=== PATIENT | female | born 1960 | race Caucasian/White ===

== ENCOUNTER 2017-02-11 05:12 | Inpatient (IN) | payer MEDICARE ==
[2017-02-08 10:54] LABS: HEMATOCRIT 34.4 % (36.0-48.0); HEMOGLOBIN 11.1 g/dL (12-16); MCH 32.7 pg (26.0-34.0); MCHC 32.3 g/dL (31.0-37.0); MCV 101.5 fL (80.0-100.0); MEAN PLATELET VOLUME 10.3 fL (7.4-10.4); RBC 3.39 10x6/uL (4.00-5.40); RDW 13.6 % (11.5-14.5); WBC 4.6 10x3/uL (4.8-10.8)
[2017-02-08 10:59] LABS: CALC OSMOLALITY 276 mosm/kg (275-300); CALCIUM 8.4 mg/dL (8.5-10.1); CARBON DIOXIDE 26.1 mmol/L (21.0-32.0); CHLORIDE - SERUM 104 mmol/L (98-107); CREATININE - SERUM 0.7 mg/dL (0.6-1.3); GLUCOSE 79 mg/dL (74-106); POTASSIUM - SERUM 4.4 mmol/L (3.5-5.1); SODIUM 138 mmol/L (136-145); UREA NITROGEN 17 mg/dL (7-18); eGFR NON AFRICAN AMERICAN > 90 mL/min (90-120)
[~2017-02-11 05:12] MED LIST: ACETAMINOPHEN PO; BUMEX 1 MG TAB1 MG PO; BUTALB-APAP-CA1 EACH PO; BUTALBITAL PO; CAFFEINE PO; CALAN SR120 MG PO; CELEXA40 MG PO; HYDROCODONE-APA1 TAB PO; KEPPRA1000 MG PO; PHENERGAN25 M1 PO; SOMA350 MG PO; TOPROL XL50 MG PO; ULTRAM50 MG PO; XANAX0.5 MG PO; ZANTAC150 MG PO
[2017-02-11 08:59] VITALS: BP 143/85; BMI 27.1
--- NOTE | 2017-02-11 15:48 | NUR ---
CONSULTED ANESTHESIA REGARDING ELEVATED BLOOD PRESSURE. GIVEN ORDERS PER ISRRAEL RUBIO CRNA FOR HYDRALAZINE 10MG TO BE GIVEN X1 IN PACU.
[2017-02-11 16:14] VITALS: BP 162/77
[2017-02-11 16:29] VITALS: BP 162/77; BMI 27.1
--- NOTE | 2017-02-11 16:49 | NUR ---
CONSULTED ANESTHESIA REGARDING NAUSEA AFTER BEING GIVEN ZOFRAN 4MG IV. GIVEN VERBAL ORDERS PER ISRRAEL RUBIO CRNA TO GIVE PHENERGAN 12.5MG IV X1 IN PACU.
--- NOTE | 2017-02-11 16:52 | NUR ---
PATIENT PRESENTED TO PACU WITH PRBC'S INFUSING. THIS WAS THE SECOND UNIT THE FIRST UNIT WAS TRANSFUSED IN OR. SECOND UNIT FINISHED TRANSFUSING AT 1545. SEE VITAL SIGN SHEET.
[2017-02-11 20:00] VITALS: BP 127/81
--- NOTE | 2017-02-11 20:06 | NUR ---
PT HERE FOR A FRACTURE FOR THIS VISIT PT DENIES NEEDS AT THIS TIME SRX2 BED AT LOWEST SETTING WILL CONTINUE TO MONITOR
--- NOTE | 2017-02-11 23:41 | NUR ---
PATIENT IS RESTING QUIETLY WITH EYES CLOSED. NO SIGNS OF DISTRESS NOTED. BED IN LOWEST POSITION, CALL LIGHT IN REACH. BED RIALS UP X'S 2.
[2017-02-12] VITALS: BP 113/72
[2017-02-12 04:52] LABS: HEMATOCRIT 30.2 % (36.0-48.0)
[2017-02-12 05:39] VITALS: BP 111/60
--- NOTE | 2017-02-12 07:50 | NUR ---
PT AOX4 RESP EVEN AND NONLABORED PT DENIES NEEDS AT THIS TIME SRX2 BED AT LOWEST SETTING CALL LIGHT WITHIN REACH WILL CONTINUE TO MONITOR
[2017-02-12 08:05] VITALS: BP 128/70
[2017-02-12 12:28] VITALS: BP 156/85
--- NOTE | 2017-02-12 14:26 | NUR ---
Patient Name: TUCKER POSEY Admission Status: Elective Accout number: [id number] Admission Date: 02-11-2017 : 1960 Admission Diagnosis: Attending: JOANNE GUNTER Current LOS: 1 Anticipated DC Date: 02-14-2017 Planned Disposition: Home Primary Insurance: MEDICARE A & B Discharge Planning Comments: CM MET WITH PATIENT REGARDING D/C NEEDS AND PLANS. PATIENT STATED SHE LIVES WITH HER SPOUSE AND HE OR HER SECURITY CONTROLS ASSESSOR WILL DRIVE HER HOME AT DISCHARGE. PATIENT STATED SHE HAS 8 STEPS W/RAILS TO ENTER HOME AND 1 STEP INSIDE. PATIENT IS INDEPENDENT WITH HER CARE AND HAS A WALKER, WHEELCHAIR, SHOWER CHAIR, BSC, OXYGEN, NEBULIZER, AND PORTABLE O2 (SUPPLIED BY [employer]). PATIENTS PCP IS DR. ESTRADA AND PHARMACY IS [facility]. PATIENT IS CURRENT WITH [facility]. CM WILL CONTINUE TO FOLLOW PATIENT WITH D/C NEEDS AND PLANS. PCP DR. ESTRADA [email or web address] [facility] [phone] ROBERT (SPOUSE) [phone] OR [phone] [facility]- [phone] Chairman & Chief Executive Officer: Devika Miriam Is the patient Alert and Oriented? Yes 0 * How many steps to enter\exit or inside your home? 8 w/rails 0 * PCP DR. ESTRADA 0 * Pharmacy [facility] 0 * Preadmission Environment Home with Family 0 * ADLs Independent 0 * Equipment Bedside Commode Nebulizer Oxygen Shower Chair Walker Wheelchair 0 * List name and contact numbers for known caregivers / representatives who currently or will assist patient after discharge: ROBERT (SPOUSE) [phone] OR [phone] 0 * Community resources currently utilized Home Health 0 * Please name any agencies selected above. [facility] 0 * Additional services required to return to the preadmission environment? Yes 0 * Can the patient safely return to the preadmission environment? Yes 0 * Has this patient been hospitalized within the prior 30 days at any hospital? No 0 Grand Total: 0
[2017-02-12 15:46] VITALS: BP 142/84
[2017-02-12 20:00] VITALS: BP 125/70
--- NOTE | 2017-02-13 01:59 | NUR ---
IV SITED TO RIGHT FOREARM X 1 ATTEMPT. 22G. GOOD BLOOD RETURN. FLUSHES W/O DIFFICULTY. FLUIDS AND MAINTENANCE SHOP CLERK HOOKED BACK UP. PT TOLERATED WELL. SIDE RAILS PLACED UP X 2. BED IN LOWEST POSITION. CALL LIGHT PLACED WITHIN REACH.
[2017-02-13 04:00] VITALS: BP 145/54
[2017-02-13 05:42] LABS: HEMATOCRIT 26.6 % (36.0-48.0); HEMOGLOBIN 8.9 g/dL (12-16)
--- NOTE | 2017-02-13 07:21 | NUR ---
REPORT RECEIVED FROM BURGLARY INVESTIGATOR NURSE. CALL LIGHT IN REACH.
--- NOTE | 2017-02-13 08:30 | NUR ---
ASSESSMENT COMPLETED. PERCOCET PO WITH AM MEDS ADMINISTERED. SCD TO RLE. EXPLAINED TO PATIENT THAT SHE NEEDS TO USE THE IS MUCH POSSIBLE. VERBALIZED UNDERSTANDING. ALSO INFORMED HER THAT WE NEED A URINE SAMPLE THE NEXT TIME SHE HAS TO GO TO THE BR.
[2017-02-13 08:54] VITALS: BP 153/85
--- NOTE | 2017-02-13 09:56 | NUR ---
NEW DIRECTOR OF SUPPLY CHAIN VIAL INITIATED. STATES PAIN IS ONLY DOWN TO AN 8 AT THIS TIME.
--- NOTE | 2017-02-13 10:50 | NUR ---
URINE COLLECTED AND SENT TO LAB.
[2017-02-13 11:35] LABS: APPEARANCE HAZY (CLEAR); COLOR YELLOW (YELLOW); NITRITE NEGATIVE (NEGATIVE); PROTEIN NEGATIVE (NEGATIVE)
[2017-02-13 11:36] LABS: BACTERIA MODERATE /hpf (NONE SEEN); BILIRUBIN NEGATIVE (NEGATIVE); EPITHELIAL CELLS 0-5 /hpf (0-5); GLUCOSE NEGATIVE (NEGATIVE); KETONE NEGATIVE (NEGATIVE); MUCUS <1+ /lpf (NONE SEEN); RED CELLS - URINE OCC /hpf (0-5); UROBILINOGEN NORMAL (NORMAL); YEAST <1+ /hpf (NONE SEEN)
--- NOTE | 2017-02-13 11:41 | NUR ---
PATIENT IN BED WITH EYES OPEN. NO COMPLAINTS AT THIS TIME. CELERY TIER IN ROOM. NO COMPLAINTS OR SIGNS OF DISTRESS. CALL LIGHT WITHIN REACH.
[2017-02-13 13:04] VITALS: BP 93/60
--- NOTE | 2017-02-13 13:43 | NUR ---
ANCEF IVPB. ASSISTED TO BR WITH USE OF WALKDER. TOLERATED VERY WELL.
--- NOTE | 2017-02-13 14:03 | NUR ---
DRSG TO LEFT HIP REMOVED, INCISION CLEANSED, AND NEW DRSG APPLIED. FAMILY AT BEDSIDE. CALL LIGHT IN REACH.
--- NOTE | 2017-02-13 14:46 | NUR ---
SOMA PO PER ORDER. STATES SHE IS HAVING HAND CRAMPS.
--- NOTE | 2017-02-13 16:44 | NUR ---
XANAX AND PERCOCET PO PER JUNAID MEEHAN.
[2017-02-13 17:34] VITALS: BP 107/66
--- NOTE | 2017-02-13 18:04 | NUR ---
NO CHANGES IN INITIAL ASSESSMENT. CALL LIGHT IN REACH. SCD TO RLE. CALL LIGHT IN REACH. WILL CONTINUE WITH PLAN OF CARE.
--- NOTE | 2017-02-13 18:56 | OP ---
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 PROCEDURE: Revision ORIF of left femur fracture. SURGEON: Joanne Gunter MD. ANESTHESIA: General. INTRAOPERATIVE COMPLICATIONS: Essentially none. SUMMARY OF PATHOLOGIC FINDINGS: The patient did have a more of malunion than a nonunion, although the distal aspect of the cable plate that was placed before had broken away and the femur had drifted into substantial amount of varus causing the patient to have severe pain in her knee and disability walking. After discussing the risks, hazards and benefits associated with this, the patient wished to proceed with corrective revision surgery. OPERATIVE SUMMARY IN DETAIL: After obtaining the appropriate preoperative orthopedic surgery consent as well as anesthetic consultation, evaluation and clearance, the patient was brought to the operating room and placed on table in supine position. After general endotracheal anesthesia was administered, the patient was placed in a right lateral decubitus position. All pressure points were well padded to include down leg peroneal pad as well as axillary roll. The patient was held firmly to the operating table using the vacuum pack suction system. Left lower extremity and hip were prepped and draped in routine sterile fashion. Previously utilized incision was made, essentially from the lateral epicondyle to just below the greater trochanter. Dissection was carried down to the IT band and careful dissection was carried down to the vastus lateralis. Substantial and significant amount of interperforators were cauterized or controlled with hemostats. Dissection was then carried down to the plate. Serial and sequential cut of the cables was done. This was followed by removal of the plate. Substantial amount of heterotopic ossification had to be removed through the entire length of the wound. At this point, a broad large frag plate from LIA was molded into more valgus using the large plate morillo. The plate was then affixed. An osteotomy was performed at the cracks of the malunion essentially right between the stem of the total hip and the intramedullary aden from a previous supracondylar femur fracture above the total knee. This was all done under fluoroscopy. Compression plating technique was done with unicortical screws and then the plate was affixed up and down the femur using Dall-Miles cables. Final radiographs were taken and submitted for radiologist review. The wound was irrigated substantially and the vastus lateralis was closed followed by the IT band with #2 Ethibond. This was then followed by #1 Vicryl, 2-0 Vicryl and skin kathy. Sterile dressings were applied. The patient was awakened, taken to the recovery room in stable OPERATIVE REPORT [id number] TUCKER POSEY condition. Overall correction seemed to be from approximately 3 degrees of varus to 7 degrees of valgus as seen on postoperative radiographs. TRANSINT:[id number] Voice Confirmation ID: [id number] DOCUMENT ID: [id number] LYRIC HUMPHRIES, JOANNE RAMOS at 1856 CC: [id number] DICTATION DATE: 02/11/17 1441 BASS VIOL REPAIRER: 02/11/17 1832 ADM IN [facility] [address] [place] [address]
[2017-02-13 20:00] VITALS: BP 99/57
[2017-02-14] VITALS (20 sets, daily range): BP systolic 90–117; BP diastolic 48–79
--- NOTE | 2017-02-14 00:48 | NUR ---
PATIENT'S CRECHE ATTENDANT SRINGE EMPTY AND BEEPING, INITIATED A NEW CRECHE ATTENDANT SYRINGE. PATIENT VERBALIZING ANXIETY, REQUESTED XANAX, WHICH IS SCHEDULED AND TIME TO BE GIVEN. ADMINISTERED. PATIENT DENIES ANY OTHER NEEDS AT THIS TIME. BED IN LOWEST POSITION, CALL LIGHT IN REACH. BED RIALS UP X'S 2.
[2017-02-14 05:18] LABS: HEMATOCRIT 23.2 % (36.0-48.0)
[2017-02-14 05:49] LABS: HEMOGLOBIN 7.4 g/dL (12-16)
--- NOTE | 2017-02-14 07:45 | NUR ---
REPORT RECEIVED FROM SAP PORTAL CONSULTANT NURSE. CALL LIGHT IN REACH.
--- NOTE | 2017-02-14 09:51 | NUR ---
ASSESSMENT COMPLETED. PERCOCET PO WITH AM MEDS ADMINISTERED. SCD TO RLE. WILL START 2ND IV FOR PRBC. CALL LIGHT IN REACH. WILL CONTINUE WITH PLAN OF CARE.
--- NOTE | 2017-02-14 11:30 | NUR ---
IN BED AT THIS TIME. SCD TO RLE AND IMOBILIZER TO LEFT LEG. DRESSING TO LEFT HIP C/D/I. RESPIRATIONS EVEN AND NON LABORED. DENIES NEEDS AT PRESENT TIME. CALL LIGHT IN REACH, WILL CONTINUE WITH PLAN OF CARE.
--- NOTE | 2017-02-14 13:54 | NUR ---
SOMA AND PERCOCET PO. CALL LIGHT IN REACH.
--- NOTE | 2017-02-14 14:45 | NUR ---
PRBC UNIT 1 INITIATED @ 125 CC/HR VIA PUMP PER JUNAID INIGUEZ. VSS AT THIS TIME. WILL CONTINUE TO MONITOR.
--- NOTE | 2017-02-14 16:38 | NUR ---
DIAZ AND GENARO PO. CALL LIGHT IN REACH.
--- NOTE | 2017-02-14 18:00 | NUR ---
C/O PAIN OF 7. PERCOCET PO. UNIT 1 COMPLETED @ 1755. NO OTHER CHANGES IN INITIAL ASSESSMENT. CALL LIGHT IN REACH. SCD TO RLE. WILL CONTINUE WITH PLAN OF CARE.
--- NOTE | 2017-02-14 19:00 | NUR ---
REPORT RECEIVED AND CARE OF PT ASSUMED. PT LYING IN SUPINE POSITION WATCHING TV. IV IN RIGHT FA PATENT WITH NS FLUSHING BLOOD TUBING AT THIS TIME. WILL MONITOR FOR NEEDS.
--- NOTE | 2017-02-14 21:39 | NUR ---
HS MEDICATIONS GIVEN. WILL CONTINUE TO MONITOR FOR NEEDS.
--- NOTE | 2017-02-14 21:45 | NUR ---
STARTED 2ND UNIT OF PRBC'S. PT HAS ELEVATED TEMP OF 99.4 PRIOR TO STARTING BLOOD.
--- NOTE | 2017-02-14 21:57 | NUR ---
GAVE TYLENOL 650 ML PO FOR ELEVATED TEMP.
--- NOTE | 2017-02-14 23:47 | NUR ---
GAVE SCHEDULED XANAX, ALONG WITH BENADRYL 25 MG PO AND PERCOCET PO PER PRN ORDERS, PER REQUEST. WILL MONITOR FOR EFFECTIVENESS. CALL LIGHT WITHIN REACH.
--- NOTE | 2017-02-15 00:20 | NUR ---
2ND UNIT OF PRBC'S COMPLETE. VITALS STABLE. WILL CONTINUE TO MONITOR. LINE FLUSHING.
[2017-02-15 00:45] VITALS: BP 109/62
[2017-02-15 01:23] VITALS: BP 109/66
[2017-02-15 01:45] VITALS: BP 114/56
--- NOTE | 2017-02-15 05:25 | NUR ---
PT AWOKE WITH SEVERE PAIN. GAVE BOLUS OF DEMERAL FROM EGG GRADER PER ORDER: 25 MG. WILL CONTINUE TO MONITOR FOR NEEDS.
[2017-02-15 06:42] VITALS: BP 138/78
[2017-02-15 07:34] LABS: BASOPHILS 0.3 % (0-2); EOSINOPHILS 3.4 % (0-7); HEMATOCRIT 28.5 % (36.0-48.0); HEMOGLOBIN 9.5 g/dL (12-16); IMMATURE GRANULOCYTES 0.2 % (0-5); LYMPHOCYTES 13.1 % (15-50); MCH 31.1 pg (26.0-34.0); MCHC 33.3 g/dL (31.0-37.0); MCV 93.4 fL (80.0-100.0); MEAN PLATELET VOLUME 10.1 fL (7.4-10.4); MONOCYTES 15.7 % (2-11); NEUTROPHILS 67.3 % (40-80); PLATELET COUNT 172 10x3/uL (130-400); RBC 3.05 10x6/uL (4.00-5.40); RDW 16.7 % (11.5-14.5); WBC 6.4 10x3/uL (4.8-10.8)
--- NOTE | 2017-02-15 07:35 | NUR ---
ASSESSMENT COMPLETE. IV TO R FA PATENT. 05/14 NS INFUSING AT 50 CC/HR VIA PUMP. ASSOCIATE BRAND MANAGER DEMEROLE 10-10-200 IN USE FOR PAIN CONTROL. DRESSING TO L HIP INTACT. IMMOBILIZER IN USE TO L LEG. SCD IN USE TO R LEG. DENIES ANY NEEDS AT THIS TIME.
[2017-02-15 07:45] LABS: CALC OSMOLALITY 276 mosm/kg (275-300); CALCIUM 7.9 mg/dL (8.5-10.1); CARBON DIOXIDE 28.2 mmol/L (21.0-32.0); CHLORIDE - SERUM 103 mmol/L (98-107); CREATININE - SERUM 0.7 mg/dL (0.6-1.3); GLUCOSE 91 mg/dL (74-106); POTASSIUM - SERUM 4.1 mmol/L (3.5-5.1); SODIUM 138 mmol/L (136-145); UREA NITROGEN 15 mg/dL (7-18); eGFR NON AFRICAN AMERICAN > 90 mL/min (90-120)
[2017-02-15 08:31] VITALS: BP 136/78
[2017-02-15] MEDS ORDERED: ELIQUIS2.5 MG PO (10:00)
[2017-02-15] MEDS ORDERED: SOMA350 MG PO (10:00)
[2017-02-15] MEDS ORDERED: MEPERIDINE HCL50 MG PO (10:01)
[2017-02-15] MEDS ORDERED: ZOFRAN4 MG PO (10:01)
[2017-02-15] MEDS ORDERED: BACTRIM DS TABL1 TAB PO (10:20)
--- NOTE | 2017-02-15 11:09 | NUR ---
CM REASSESSMENT NOTE: PATIENT IS DISCHARGING HOME TODAY/ FRIEND IS DRIVING HER HOME. PATIENT IS CURRENT WITH [facility]. FRIENDS WILL BE STAYING WITH HER AT HER HOME TO HELP. PATIENT HAS NO OTHER NEEDS FOR DISCHARGE. IAM SERVED THIS AM.
--- NOTE | 2017-02-15 12:30 | NUR ---
IV REMOVED. CATHETER TIP INTACT. DRESSING TO L HIP CHANGED. HERIBERTO INTACT TO L HIP INCISION. DISCHARGE TEACHING GIVEN TO PATIENT AND CAREGIVER. VOICED UNDERSTANDING. SCRIPTS FOR ELIQUIS, SOMA, DEMEROL,AND ZOFRAN GIVEN TO PATIENT.
--- NOTE | 2017-02-15 13:15 | NUR ---
DC'D HOME WITH DEMAND PLANNING MANAGER. ESCORTED TO VEHICLE BY VOLUNTEER VIA WC WITH BELONGINGS.
== END 2017-02-15 13:15 | disposition home health service (06) | DRG 481 ==
LOC: D.OPS 05:12 → D.PAN 10:15 → D.OPS 10:15 → D.PAN 10:45 → D.OPS 10:45 → D.PAN 12:45 → D.MS 15:55 → D.OPS 16:46 → D.MS 16:46
PROVIDERS: Anesthesiology; ADMIT Orthopaedic Surgery
PROC: 0QS904Z Reposition Left Femoral Shaft with Internal Fixation Device, Open Approach (ICD-10-PCS; principal; 2017-02-11 10:15)
DX: S72.302 Unspecified fracture of shaft of left femur (principal); D62 Acute posthemorrhagic anemia; X58.XXXD Exposure to other specified factors, subsequent encounter; I10 Essential (primary) hypertension; K21.9 Gastro-esophageal reflux disease without esophagitis; J44.9 Chronic obstructive pulmonary disease, unspecified; G40.909 Epilepsy, unspecified, not intractable, without status epilepticus; F17.200 Nicotine dependence, unspecified, uncomplicated

== ENCOUNTER → 2017-02-22 19:57 | Outpatient (CLI) | payer MEDICARE ==
[2017-02-11 16:29] VITALS: BMI 27.1
[~2017-02-22 19:57] MED LIST changes: +BACTRIM DS TABL1 TAB PO; +ELIQUIS2.5 MG PO; +MEPERIDINE HCL50 MG PO; +ZOFRAN4 MG PO
[2017-02-22 20:21] LABS: BASOPHILS 0.7 % (0-2); HEMATOCRIT 33.3 % (36.0-48.0); HEMOGLOBIN 10.6 g/dL (12-16); IMMATURE GRANULOCYTES 0.4 % (0-5); MCH 30.8 pg (26.0-34.0); MCHC 31.8 g/dL (31.0-37.0); MCV 96.8 fL (80.0-100.0); MEAN PLATELET VOLUME 10.1 fL (7.4-10.4); MONOCYTES 10.3 % (2-11); NEUTROPHILS 58.6 % (40-80); PLATELET COUNT 343 10x3/uL (130-400); RBC 3.44 10x6/uL (4.00-5.40); RDW 15.6 % (11.5-14.5); WBC 5.5 10x3/uL (4.8-10.8)
== END | disposition home or self-care (01) ==
LOC: D.LABREF 19:57
PROVIDERS: Orthopaedic Surgery
DX: M96.662 Fracture of femur following insertion of orthopedic implant, joint prosthesis, or bone plate, left leg (principal); I10 Essential (primary) hypertension; K21.9 Gastro-esophageal reflux disease without esophagitis; J44.9 Chronic obstructive pulmonary disease, unspecified

== ENCOUNTER → 2017-06-15 17:27 | Outpatient (CLI) | payer MEDICARE ==
[2017-06-15 18:54] LABS: INR 5.47 (0.85-1.17); PROTIME 48.8 SECONDS (11.6-15.0)
== END | disposition home or self-care (01) ==
LOC: D.LABREF 17:27
PROVIDERS: Internal Medicine Cardiovascular Disease
DX: Z51.81 Encounter for therapeutic drug level monitoring (principal); Z79.01 Long term (current) use of anticoagulants

== ENCOUNTER → 2017-07-09 20:02 | Outpatient (CLI) | payer MEDICARE ==
[2017-07-09 20:58] LABS: INR 1.29 (0.85-1.17); PROTIME 15.6 SECONDS (11.6-15.0)
== END | disposition home or self-care (01) ==
LOC: D.LABREF 20:02
PROVIDERS: Internal Medicine Cardiovascular Disease
DX: I11.0 Hypertensive heart disease with heart failure (principal); Z51.81 Encounter for therapeutic drug level monitoring; Z79.899 Other long term (current) drug therapy; I50.9 Heart failure, unspecified

== ENCOUNTER 2018-04-21 13:20 | Emergency (ER) | payer MEDICARE | END 2018-04-21 17:16 | disposition home or self-care (01) | LOC: D.ER 13:20 | DX: S80.01XA Contusion of right knee, initial encounter (principal); W18.30XA Fall on same level, unspecified, initial encounter; Y93.89 Activity, other specified; Y92.019 Unspecified place in single-family (private) house as the place of occurrence of the external cause; M25.521 Pain in right elbow; R07.81 Pleurodynia; G40.909 Epilepsy, unspecified, not intractable, without status epilepticus; I10 Essential (primary) hypertension ==

== ENCOUNTER 2019-01-23 11:14 | Inpatient (IN) | payer MEDICARE ==
[~2019-01-23] VITALS: Ht 165.1 cm; Wt 77.1 kg
[~2019-01-23 11:14] MED LIST changes: +CYCLOBENZAPRINE10 MG PO; +KEFLEX500 MG PO; +PLAVIX75 MG PO
[2019-01-23] MEDS ORDERED: PHENERGAN25 MG RC (11:28)
[2019-01-23 12:15] LABS: HEMOGLOBIN 11.1 g/dL (12-16); LYMPHOCYTES 32.6 % (15-50); MCH 32.3 pg (26.0-34.0); MCHC 32.6 g/dL (31.0-37.0); MCV 98.8 fL (80.0-100.0); MEAN PLATELET VOLUME 10.9 fL (7.4-10.4); NEUTROPHILS 51.9 % (40-80); RBC 3.44 10x6/uL (4.00-5.40); RDW 14.1 % (11.5-14.5); WBC 4.5 10x3/uL (4.8-10.8)
[2019-01-23 12:16] LABS: BASOPHILS 0.9 % (0-2); EOSINOPHILS 2.7 % (0-7); MONOCYTES 11.9 % (2-11)
[2019-01-23 12:19] LABS: PLATELET COUNT 138 10x3/uL (130-400)
[2019-01-23 12:27] LABS: APTT 31.6 SECONDS (22.8-39.4); INR 1.11 (0.85-1.17); PROTIME 13.8 SECONDS (11.6-15.0)
[2019-01-23 12:29] LABS: ALBUMIN 3.6 g/dL (3.4-5.0); ALKALINE PHOSPHATASE 252 U/L (46-116); ALT (SGPT) 41 U/L (10-68); BILIRUBIN - TOTAL 0.38 mg/dL (0.2-1.3); CALC OSMOLALITY 289 mosm/kg (275-300); CALCIUM 7.7 mg/dL (8.5-10.1); CARBON DIOXIDE 22.8 mmol/L (21.0-32.0); CHLORIDE - SERUM 110 mmol/L (98-107); CREATININE - SERUM 1.2 mg/dL (0.6-1.3); GLUCOSE 109 mg/dL (74-106); POTASSIUM - SERUM 5.9 mmol/L (3.5-5.1); PROTEIN - SERUM 6.6 g/dL (6.4-8.2); SODIUM 142 mmol/L (136-145); UREA NITROGEN 30 mg/dL (7-18); eGFR NON AFRICAN AMERICAN 49 mL/min (90-120)
[2019-01-23 12:40] LABS: CKMB 0.9 U/L (0.0-3.6); CREATINE KINASE 86 UL (21-215); MAGNESIUM - SERUM 2.7 mg/dL (1.8-2.4); THYROID STIMULATING HORMONE 1.14 uIU/mL (0.36-3.74); TROPONIN-I < 0.017 ng/mL (0.000-0.060)
[2019-01-23 15:34] LABS: APPEARANCE CLEAR (CLEAR); BILIRUBIN NEGATIVE (NEGATIVE); COLOR YELLOW (YELLOW); GLUCOSE NEGATIVE (NEGATIVE); KETONE NEGATIVE (NEGATIVE); NITRITE NEGATIVE (NEGATIVE); PROTEIN NEGATIVE (NEGATIVE); UROBILINOGEN NORMAL (NORMAL)
[2019-01-23 15:36] LABS: RED CELLS - URINE 0-5 /hpf (0-5); WHITE CELLS - URINE 25-50 /hpf (0-5)
[2019-01-23 15:37] LABS: BACTERIA FEW /hpf (NONE SEEN); EPITHELIAL CELLS 0-5 /hpf (0-5)
[2019-01-23 15:48] LABS: UDS - AMPHET NEGATIVE QUAL (NEGATIVE); UDS - BARB NEGATIVE QUAL (NEGATIVE); UDS - BENZO POSITIVE QUAL (NEGATIVE); UDS - COCAINE NEGATIVE QUAL (NEGATIVE); UDS - OPIATE POSITIVE QUAL (NEGATIVE); UDS - PCP NEGATIVE QUAL (NEGATIVE); UDS - THC NEGATIVE QUAL (NEGATIVE)
[2019-01-23 18:35] VITALS: BP 120/78
--- NOTE | 2019-01-23 19:00 | NUR ---
ARRIVED TO FLOOR VIA STRETCHER AND ER STAFF XS 1. BIPAP IS ON AND WORKING PROPERLY AT THIS TIME, HAS CONCERNS OF HER WEARING IT, HE THINKS IT IS MAKING HER TOO SLEEPY, EDUCATION PROVIDED TO HIM ON HER BODY NEEDING THE REST TO RECOVER FULLY, HE UNDERSTOOD, RESPIRATORY ON UNIT TO MAKE SURE ALL SETTINGS ARE CORRECT. PT IS ALERT TO VERBAL STIMULI, SHE COMPLAINS OF HEADACHE, TYLENOL GIVEN PER ORDERS, IV TO LEFT SHOULDER IS PATENT. SKIN IS CDI, SHOWS NO S/S OF ANY ACUTE DISTRESS. WILL MOTE ANY CHANGE.
[2019-01-23 20:22] VITALS: BP 108/61
[2019-01-23 21:27] VITALS: BP 108/61; BMI 28.3
--- NOTE | 2019-01-23 22:03 | NUR ---
ADMISSION ASSESSMENT COMPLETE.
[2019-01-24] VITALS: BP 127/67
[2019-01-24 03:05] LABS: BASOPHILS 1.6 % (0-2); EOSINOPHILS 2.2 % (0-7); HEMATOCRIT 31.3 % (36.0-48.0); LYMPHOCYTES 23.3 % (15-50); MCH 31.9 pg (26.0-34.0); MCHC 31.9 g/dL (31.0-37.0); MEAN PLATELET VOLUME 11.2 fL (7.4-10.4); MONOCYTES 24.9 % (2-11); PLATELET COUNT 127 10x3/uL (130-400); RBC 3.13 10x6/uL (4.00-5.40); RDW 14.3 % (11.5-14.5)
[2019-01-24 03:06] LABS: WBC 3.1 10x3/uL (4.8-10.8)
[2019-01-24 03:29] LABS: CKMB 0.7 U/L (0.0-3.6); CREATINE KINASE 60 UL (21-215); MAGNESIUM - SERUM 2.7 mg/dL (1.8-2.4)
[2019-01-24 03:30] LABS: TROPONIN-I < 0.017 ng/mL (0.000-0.060)
--- NOTE | 2019-01-24 03:54 | NUR ---
AT 0255 COMPLAINTS OF CHEST PAIN NOTED, VS T:98.8, BP:156/72, R:12, HR:68, 02 100% ON BIPAP, RAPID RESPONSE CALLED IN RELATION TO PREVIOUS CARDIAC HX AND CURRENT RESPIRATORY ISSUES. IS AT BEDSIDE. PT STATES PAIN IS IN THE LOWER LEFT CHEST REGION AND MORE PROMINENT UPON INSPIRATION. RAPID TEAM ARRIVED WITH MULTIPLE STAT ORDERS INCLUDING NITRO SL TIMES TWO WITH NO RELIEF OF CHEST PAIN, CARDIAC ENZYMES WERE STABLE, COMPLAINTS OF HEADACHE NOTED, DR. RAYA WAS SATISFIED WITH CURRENT TYLENOL ORDERS, PT REQUESTED HER HYDROCODONE BE RESTARTED INSTEAD OF TAKING TYLENOL, INSTRUCTED PT THAT HER HOME MEDS WERE STILL UNDER REVIEW FOR PHYSICIAN TO RESTART, PT VERBALLY UNDERSTOOD AND TOOK TYLENOL, SPEAKS FOR PT ON OCCASIONS AND COMMUNICATES TO STAFF HER COMPLAINTS, PT REMAINS ON THIS UNIT AT THIS TIME WITH ORDERS FOR CARDIAC CONSULT TO BE CALLED IN MORNING. VS ARE STABLE, REPOSITIONED TIMES TWO STAFF, BIPAP THERAPY CONTINUED. COMPLAINTS OF SINUS BUILD UP PER AT THIS TIME. WILL CONTINUE TO OBSERVE AND NOTE ANY CHANGE.
[2019-01-24 04:00] VITALS: BP 139/79
--- NOTE | 2019-01-24 04:53 | NUR ---
RESTING QUIETLY IN BED AT THIS TIME, STATES TURNING THE LIGHT OFF HELPS WITH HER HEADACHE, LIGHT OFF, NO S/S OF ANY ACUTE DISTRESS, NO FURTHER COMPLAINTS OF PAIN. WILL NOTE ANY CHANGE.
[2019-01-24 05:15] LABS: BASOPHILS 0.6 % (0-2); EOSINOPHILS 3.4 % (0-7); HEMATOCRIT 30.2 % (36.0-48.0); HEMOGLOBIN 9.6 g/dL (12-16); LYMPHOCYTES 22.8 % (15-50); MCH 31.6 pg (26.0-34.0); MCHC 31.8 g/dL (31.0-37.0); MCV 99.3 fL (80.0-100.0); MEAN PLATELET VOLUME 11.7 fL (7.4-10.4); MONOCYTES 19.4 % (2-11); NEUTROPHILS 53.8 % (40-80); PLATELET COUNT 133 10x3/uL (130-400); RBC 3.04 10x6/uL (4.00-5.40); RDW 14.2 % (11.5-14.5); WBC 3.3 10x3/uL (4.8-10.8)
[2019-01-24 05:44] LABS: % SATURATION 16 % (15-55); IRON 40 ug/dl (35-150); TOTAL IRON BIND CAPACITY 237 ug/dl (260-445); UNSAT IRON BIND CAPACITY 197 ug/dl (150-375)
[2019-01-24 06:05] LABS: ALBUMIN 3.2 g/dL (3.4-5.0); ALKALINE PHOSPHATASE 215 U/L (46-116); ALT (SGPT) 32 U/L (10-68); BILIRUBIN - TOTAL 0.45 mg/dL (0.2-1.3); CALC OSMOLALITY 278 mosm/kg (275-300); CALCIUM 7.7 mg/dL (8.5-10.1); CARBON DIOXIDE 23.1 mmol/L (21.0-32.0); CHLORIDE - SERUM 110 mmol/L (98-107); FERRITIN 70 ng/mL (3-244); GLUCOSE 81 mg/dL (74-106); MAGNESIUM - SERUM 2.7 mg/dL (1.8-2.4); PHOSPHOROUS 3.6 mg/dL (2.5-4.9); POTASSIUM - SERUM 5.5 mmol/L (3.5-5.1); PRO BNP 2069 pg/mL (0-125); PROTEIN - SERUM 6.6 g/dL (6.4-8.2); SODIUM 138 mmol/L (136-145); UREA NITROGEN 25 mg/dL (7-18)
[2019-01-24 06:22] LABS: CREATININE - SERUM 0.8 mg/dL (0.6-1.3); eGFR NON AFRICAN AMERICAN 78 mL/min (90-120)
--- NOTE | 2019-01-24 07:03 | NUR ---
PATIENT RESTING WITH NO NEEDS VOICED, BIPAP ON, AT SIDE
[2019-01-24 08:46] VITALS: BP 151/72
[2019-01-24 09:51] VITALS: Ht 165.1 cm; Wt 77.1 kg
[2019-01-24 12:39] VITALS: BP 157/75
[2019-01-24 16:52] VITALS: BP 146/81
[2019-01-24 19:53] VITALS: BP 149/76
--- NOTE | 2019-01-24 20:00 | NUR ---
ALERT RESTING IN BED AT BEDSIDE, C/O SEVER BACK BACK REQUESTING PAIN MEDICATION, INSTRUCTED THAT ONLY HAD TYLENOL ORDERED FOR PAIN AND HAD THAT AT 1630, DUE FOR SOMA AND XANAX AT 2100 WILL GIVE THAT AND SEE IF THAT HELPS, DR DID NOT WANT TO GIVE MEDS THAT MIGHT MAKE SLEEPY DUE TO REPITORY PROBLEMS LAST NIGHT, VERBALIZED UNDERSTANDING, SEE SHIFT ASSESSMENT, CALL LIGHT IN REACH.
--- NOTE | 2019-01-24 21:00 | NUR ---
REFUSED TYLENOL AT THIS TIME, GOING TO TRY AND SEE IF SOMA AND XANAX HEPL
--- NOTE | 2019-01-24 22:45 | NUR ---
[place] CARDIAC MONITOR FOR DR RAYA PAGED REGARDING UNCONTROLED BACK PAIN, AWAITING CALL BACK
--- NOTE | 2019-01-25 00:10 | NUR ---
CALL BACK RECIEVED FROM [place], INFORMED OF C/O SEVER BACK PAIN TAKES NORCO AT HOME FOR PAIN BUT PT WAS APPARENTLY LETHARGIC ON ADMIT WITH NOTE IN CHART FROM DR RAYA NO TO OVER SEDATE, HAS TYLENOL FOR PAIN WHICH WAS GIVEN WITHOUT RELIEF AND SOMA AND XANAX RESTARTED AT 2100, CONTINUES NO RELIEF, NO ORDERS AT THIS TIME STATES WILL NEED TO TO TALK TO IN AM ABOUT ADDITIONAL PAIN MEDICATION, PT AND INFORMED, TYLENOL GIVEN AND PILLOWS PLACED ON BED FOR COMFORT
[2019-01-25 00:46] VITALS: BP 163/80
--- NOTE | 2019-01-25 01:30 | NUR ---
STATES SHE WANTS TO GO AMA, SPOKE WITH PT STATES I CANT LAY IN THAT BED MY BACK IS KILLING ME I JUST WANT TO GO HOME AND GET IN MY RECLINER, THAT IS WHERE I SLEEP, REMINDED PT OF CONDITION SHE WAS IN WHEN SHE CAME TO HOSPITAL AND NEED TO STAY AND TALK TO TOMORROW, INSISTING ON GOING HOME AMA
--- NOTE | 2019-01-25 02:10 | NUR ---
HOUSE SUPERVISIOR NOTIFIED, WILL ATTEMPT TO FIND MORE COMFORTABLE RECLINER FOR ROOM, [place] ESQUIVEL AND RETURNED CALL INFORMED OF PT WANTING TO GO AMA AND STATES ONLY DR SHE REMEMBERS IS DR AMBROCIO WHO WANTS TO DO ANGEOGRAM ON SATURDAY INSTRUCTED TO REALLY ENCOURAGE PT TO STAY AND 1 TIME ORDER FOR NORDONNA GIVE
--- NOTE | 2019-01-25 02:30 | NUR ---
LARGE SOFT RECLINER LOCATED AND PLACED IN ROOM, PT STATES THIS MIGHT WORK FEEL GOOD, INSTRUCTED THAT [place] SLATER HAD ORDERED ONE TIME NORCO TO HELP WITH PAIN, AGREED TO TAKE PAIN MED AND TO STAY IN HOSPITAL TONIGHT AND TALK TO DRS TOMORRW, REMAING AT BEDSIDE, CALL LIGHT IN REACH
[2019-01-25 05:38] LABS: BASOPHILS 0.3 % (0-2); EOSINOPHILS 0.6 % (0-7); HEMATOCRIT 28.3 % (36.0-48.0); HEMOGLOBIN 9.2 g/dL (12-16); MCH 31.3 pg (26.0-34.0); MCHC 32.5 g/dL (31.0-37.0); MONOCYTES 21.4 % (2-11); NEUTROPHILS 47.7 % (40-80); PLATELET COUNT 143 10x3/uL (130-400); RBC 2.94 10x6/uL (4.00-5.40); RDW 14.1 % (11.5-14.5); WBC 3.3 10x3/uL (4.8-10.8)
[2019-01-25 05:39] LABS: MCV 96.3 fL (80.0-100.0)
[2019-01-25 06:04] LABS: CALC OSMOLALITY 285 mosm/kg (275-300); CALCIUM 7.8 mg/dL (8.5-10.1); CARBON DIOXIDE 19.4 mmol/L (21.0-32.0); CHLORIDE - SERUM 113 mmol/L (98-107); CREATININE - SERUM 0.8 mg/dL (0.6-1.3); GLUCOSE 86 mg/dL (74-106); MAGNESIUM - SERUM 2.6 mg/dL (1.8-2.4); POTASSIUM - SERUM 5.3 mmol/L (3.5-5.1); SODIUM 143 mmol/L (136-145); UREA NITROGEN 19 mg/dL (7-18); eGFR NON AFRICAN AMERICAN 78 mL/min (90-120)
--- NOTE | 2019-01-25 07:45 | NUR ---
PT RESTING IN RECLINER WITH EYES OPEN, LAYING IN BED. ALERT AND ORIENTED. NO S/S OF DISTRESS AT THIS TIME. IV LOCATED TO LEFT SHOULDER CURRENTLY SL. DENIES NEEDS AT THIS TIME, WILL CONT TO MONITOR.
[2019-01-25 08:58] VITALS: BP 135/77
[2019-01-25 12:07] VITALS: BP 152/72
--- NOTE | 2019-01-25 12:38 | NUR ---
PT SITTING UP IN RECLINER WATCHING TV. NO S/S OF DISTRESS, DENIES NEEDS AT THIS TIME.
[2019-01-25 17:06] VITALS: BP 159/93
--- NOTE | 2019-01-25 19:15 | NUR ---
RECEIVED CARE FROM DAY NRUSE. SITTING IN RECLINER STATING IT IS MORE COMFORTABLE FOR HER. SPOUSE AT SIDE. REQUESTING NORCO. NO NORCO ORDERED AND PER DAY NURSE AWARE THAT SHE WOULD LIKE HER NORCO'S REORDERED. IV SL TO LEFT SHOULDER. NO OTHER NEEDS VOICED AT THIS TIME. CALL LIGHT AT SIDE.
[2019-01-25 20:00] VITALS: BP 197/80
[2019-01-25] MEDS ORDERED: HYDROCODON-ACE1 EA10 PO (21:00)
[2019-01-25] MEDS ORDERED: LOPRESSOR25 MG PO (21:05)
[2019-01-26] VITALS: BP 148/75
--- NOTE | 2019-01-26 04:00 | NUR ---
I have reviewed this patient and I concur with the Shift Assessment completed by the Licensed Practical Nurse today this shift.
--- NOTE | 2019-01-26 06:39 | NUR ---
PT REPORTS SHE IS NOT HAVING THE HEART CATH THIS MORNING AND WANTS TO GO HOME. SPOKE WITH DR RAYA WHO STATES IT WILL BE ADDRESSED ON ROUNDS. SPOKEW WITH DR AMBROCIO WHO IS OK WITH DC.
[2019-01-26 06:40] LABS: BASOPHILS 0.7 % (0-2); EOSINOPHILS 1.9 % (0-7); HEMATOCRIT 30.8 % (36.0-48.0); HEMOGLOBIN 10.2 g/dL (12-16); LYMPHOCYTES 43.4 % (15-50); MCH 31.6 pg (26.0-34.0); MCHC 33.1 g/dL (31.0-37.0); MCV 95.4 fL (80.0-100.0); MEAN PLATELET VOLUME 10.9 fL (7.4-10.4); MONOCYTES 19.1 % (2-11); NEUTROPHILS 34.9 % (40-80); RBC 3.23 10x6/uL (4.00-5.40); RDW 14.4 % (11.5-14.5); WBC 2.7 10x3/uL (4.8-10.8)
[2019-01-26 06:41] LABS: PLATELET COUNT 174 10x3/uL (130-400)
[2019-01-26 06:46] LABS: CALC OSMOLALITY 285 mosm/kg (275-300); CHLORIDE - SERUM 113 mmol/L (98-107); CREATININE - SERUM 0.8 mg/dL (0.6-1.3); GLUCOSE 80 mg/dL (74-106); MAGNESIUM - SERUM 2.4 mg/dL (1.8-2.4); PHOSPHOROUS 2.7 mg/dL (2.5-4.9); POTASSIUM - SERUM 4.9 mmol/L (3.5-5.1); SODIUM 143 mmol/L (136-145); UREA NITROGEN 17 mg/dL (7-18); eGFR NON AFRICAN AMERICAN 78 mL/min (90-120)
--- NOTE | 2019-01-26 08:00 | NUR ---
PATIENT SITTING UP IN RECLINER WITH NO COMPLAINTS AT THIS TIME. STATES SHE IS NOT HAVING A HEART CATH SHE REFUSES. DR. RAMSAY NOTIFIED THIS AM BY TIARRA HAN. IV INTACT. FAMILY AT BEDSIDE. CALL LIGHT WITHIN REACH.
[2019-01-26 08:06] VITALS: BP 157/55
--- NOTE | 2019-01-26 09:40 | NUR ---
Nutrition follow-up: Pt currently NPO for heart cath today PO intake of low sodium diet has been ~50% of last 5 meals Labs reviewed Wt: 170# RDN following.
--- NOTE | 2019-01-26 11:03 | MORECARE ---
CASE MANAGEMENT DISCHARGE SUMMARY PATIENT: TUCKER POSEY UNIT: [id number] ADM DATE: 01/23/19 AGE: 58 : 62 SEX: F ROOM/BED: D.2234 AUTHOR: ANALIDOC PHYSICIAN: REFERRING PHYSICIAN: MARIA ELENA RAYA MD DATE OF SERVICE: 01/26/19 Discharge Plan Patient Name: TUCKER POSEY Facility: [facility]:[place] : 1960 Planned Disposition: Home Anticipated Discharge Date: 01/26/19 Discharge Date: Expected LOS: 3 Initial Reviewer: [email or web address] Initial Review Date: 01/26/2019 Generated: 01/26/19 12:03 pm Comments DCP- Discharge Planning Updated by [email or web address]: Romelia Friedman on 01/26/19 10:[address] Patient Name: TUCKER POSEY Admission Status: ER Accout number: [id number] Admission Date: 01-23-2019 : 1960 Admission Diagnosis: Attending: MARIA ELENA RAYA Current LOS: 3 Anticipated DC Date: 01-26-2019 Planned Disposition: Home Primary Insurance: MEDICARE A & B Discharge Planning Comments: CM met with patient at bedside after explaining CM role and obtaining verbal consent. STATES HAS [facility] [place] FOR AND [facility]. PLANS TO DC TO HOME TODAY WITH . IM SIGNED. CM TO FOLLOW AND ASSIST. Refractory Technician: Romelia Friedman DCPIA - Discharge Planning Initial Assessment Updated by [email or web address]: Romelia Friedman on 01/26/19 11:00 am * Is the patient Alert and Oriented? Yes * PCP [facility] * [facility] * Preadmission Environment Home with Family * ADLs Independent * Other Equipment WALKER, O2 * Community resources currently utilized Home Health * Please name any agencies selected above. [facility] AND [facility] * Additional services required to return to the preadmission environment? No * Can the patient safely return to the preadmission environment? Yes * Has this patient been hospitalized within the prior 30 days at any hospital? No Coverage Notice Reviewer: [id number] Mohan Friedman Notice Issued Date-Time: 01/26/2019 10:58 Notice Type: IM Discharge Notice Notice Delivered To: Patient Relationship to Patient: Chief Investment Officer Name: Delivery Method: HAND - Hand Delivered Brandee Days: Prior Verbal Notification: Recipient Understood Notice: Yes Recipient Signature: Yes Med Rec Note Co-signed by Attending: Coverage Notice Comment: Patient Name: TUCKER POSEY Page [phone] at 1103 All edits/amendments must be made on the electronic document DICTATION DATE: 01/26/191102 WAGON WINDER: JARRETT 01/26/191102 RPT#: [id number] DC DATE: STATUS: ADM IN [facility] [address] [place] [address] END OF REPORT
[2019-01-26] MEDS ORDERED: Nicoderm [PBKC] TRANSDERM (11:24)
[2019-01-26] MEDS ORDERED: OMNICEF300 MG PO (11:25)
[2019-01-26 11:49] VITALS: BP 142/83
--- NOTE | 2019-01-26 12:10 | NUR ---
PATIENT RECIEVED DC INSTRUCTIONS. VERBALIZED UNDERSTANDING. IV REMOVED WITH CATH TIP INTACT. FAMILY AT SIDE. AWAITING WC FOR DC. CALL LIGHT WITHIN REACH.
--- NOTE | 2019-01-27 13:03 | EC ---
PATIENT:TUCKER POSEY DATE OF SERVICE: 01/23/19 SEX: F MEDICAL RECORD: [id number] DATE OF : 62 LOCATION:D[facility] AGE OF PATIENT: 58 ADMISSION DATE: 01/23/19 REFERRING PHYSICIAN: INTERPRETING PHYSICIAN: KEILA AMBROCIO MD ECHOCARDIOGRAM REPORT ECHO CHARGES 4 ECHO COMPLETE Date: 01/24/19 CLINICAL DIAGNOSIS: CHF/CAD ECHOCARDIOGRAPHIC MEASUREMENTS (adult normal given) AC root (d.<3.7cm) 2.8 cm LV Septum d (<1.2 cm> 1.3 cm Valve Excursion 2.0 cm LV Septum (systole) 1.8 cm Left Atria (s.<4.0cm> 4.8 cm LVPW d(<1.2cm) 1.4 cm RV (d.<2.3cm) 1.7 cm LVPW (sytole) 1.9 cm LV diastole(<5.6CM) 4.3 cm MV E-F(>70mm/sec) cm LV systole 2.2 cm LVOT Diameter 1.9 cm MV exc.(>10mm) cm Est.ejection fraction (50-75%) % DOPPLER: LVIT cm/sec A 163 cm/sec E 128 cm/sec LA cm/sec RVSP 27.0 mmHg LVOT 242 cm/sec AOP1/2T m/s Asc. Ao 245 cm/sec RVOT 143 cm/sec RA cm/sec PA 169 cm/sec AV Gradient Peak 24.0 mmHg AV Mean 13.0 mmHg AV Area 3.0 cm MV Gradient Peak 9.9 mmHg MV Mean 4.1 mmHg MV Area cm COMMENTS: Elementary School Band Director: Matty GARCIAOE Certified Public Accountant: 3 Dr. Mackey TAPE# PACS Pericardial Effusion N DATE OF SERVICE: 01/25/2019 Adequate 2D, color flow imaging, spectral Doppler, and M-Mode LVH is present. LV internal dimension is normal. Wall motion is normal. EF is greater than or equal to 55%. Aortic valve is sclerosed without evidence of stenosis by Doppler interrogation. Left atrium is dilated at 4.8 cm. Mitral valve is thickened. Trace MR. Right-sided chambers are grossly normal. Ialv-eh-[id number] TR. ECHOCARDIOGRAM REPORT [id number] TUCKER POSEY TRANSINT:[id number] Voice Confirmation ID: [id number] DOCUMENT ID: [id number] KEILA AMBROCIO MD at 1303 CC: [id number] DICTATION DATE: 01/25/19923 METAL FITTER: 01/25/19 1258 DIS IN 01/26/19 [place] [id number] [place] [id number]
--- NOTE | 2019-01-27 13:03 | CN ---
PATIENT NAME:TUCKER POSEY MEDICAL RECORD: [id number] : 62 LOCATION:[facility] [id number] ADMIT DATE: 01/23/19 ACCOUNT: [id number] CONSULTING PHYSICIAN: KEILA AMBROCIO MD REFERRING PHYSICIAN: MARIA ELENA RAYA MD DATE OF CONSULTATION: 01/24/2019 HISTORY OF PRESENT ILLNESS: A 58-year-old female with known history of coronary artery disease, status post SALOON KEEPER and stenting and subsequent either dissection or perforation with emergency bypass grafting. This was at [facility]. Unknown EF post procedure. History of, by 's report, increasing angina over the past 2-3 weeks with chest tightness, pressure with exertion as well as symptomology consistent with LV dysfunction, progressed to orthopnea, confusion, brought to the ER on an emergent basis, initially on BiPAP. Currently improved after diuresis. Reports basically class III symptomatology, chest tightness, pressure with exertion. We are asked to see her concerning her cardiovascular status. PAST MEDICAL HISTORY: Includes; 1. History of hypertension. 2. Hyperlipidemia. 3. Coronary artery disease as described above. ALLERGIES: INCLUDE NONSTEROIDAL, PENICILLIN, ASPIRIN. MEDICATIONS: Include Phenergan 25 mg every 4 hours p.r.n., Soma 350 t.i.d. p.r.n., Plavix 75 every day, metoprolol 50 every day, Xanax 0.5 every 8 hours p.r.n., Celexa 40 every day, Keppra 500 every day, Zantac 150 b.i.d., and Bumex 1 mg every day. SOCIAL HISTORY: Smokes about a pack a day. Nondrinker. Stays active, but no set exercise program. reports marked decrease in effort tolerance over the past 3-4 weeks. REVIEW OF SYSTEMS: The patient reports easy bruising but reports no swollen glands. The patient reports no fever, no night sweats, no significant weight gain, no significant weight loss. No significant exercise tolerance. The patient reports no dry eyes, no irritation, no vision change. Patient reports no difficulty hearing and no ear pain. Patient reports no frequent nose bleeds or nose and sinus problems. Patient reports on arm pain on exertion. No shortness of breath while lying down. No history of heart murmur. Patient reports no cough, no wheezing or coughing up blood. Patient reports no abdominal pain, no vomiting. Normal appetite. No diarrhea and not vomiting blood. No nausea and no constipation. Patient reports no incontinence. No difficulty urinating. No hematuria. No increased frequency. Patient reports no muscle aches. No weakness, no arthralgias, no back pain. No swelling of the extremities. Patient reports no abnormal mole, no jaundice, no rashes. Reports no loss of consciousness. No weakness and no numbness. No seizures, dizziness, or headaches. The patient reports no depression, no sleep disturbance, feeling safe in a relationship and no alcohol abuse. Patient reports on fatigue. Reports no runny nose or sinus pressure. No itching, no hives, and no frequent sneezing. PHYSICAL EXAMINATION: GENERAL: Pleasant female, in no acute distress, appears older than stated age. CONSULT REPORT [id number] TUCKER POSEY VITAL SIGNS: Blood pressure 151/72. HEENT: Normocephalic, atraumatic. NECK: No bruits noted. HEART: Regular. A II/ systolic ejection murmur. LUNGS: Fair air excursion at this point. Few expiratory wheezes. ABDOMEN: Soft, nontender. EXTREMITIES: Pulses 2+. No edema. DIAGNOSTIC DATA: ECG shows nonspecific ST-T changes inferolaterally without old for comparison. IMPRESSION: Acute coronary syndrome, class III-IV angina, known residual disease. At this point in time, given the impression of her symptomology, we will consider diagnostic angiography. TRANSINT:[id number] Voice Confirmation ID: [id number] DOCUMENT ID: [id number] KEILA AMBROCIO MD at 1303 CC: [id number] DICTATION DATE: 01/24/19 1012 PHARMACEUTICAL SALES SPECIALIST: 01/24/19 1041 DIS IN 01/26/19 [facility] [address] [place] [address]
--- NOTE | 2019-01-28 09:04 | MORECARE ---
CASE MANAGEMENT DISCHARGE SUMMARY PATIENT: TUCKER POSEY UNIT: [id number] ADM DATE: 01/23/19 AGE: 58 : 62 SEX: F ROOM/BED: D.2234 AUTHOR: ANALI,DOC PHYSICIAN: REFERRING PHYSICIAN: MARIA ELENA RAYA MD DATE OF SERVICE: 01/28/19 Discharge Plan Patient Name: TUCKER POSEY Facility: [facility]:[place] : 1960 Planned Disposition: Home Anticipated Discharge Date: 01/26/19 Discharge Date: 01/26/2019 Expected LOS: 3 Initial Reviewer: [email or web address] Initial Review Date: 01/26/2019 Generated: 01/28/19 10:04 am Comments DCP- Discharge Planning Updated by [email or web address]: Romelia Friedman on 01/26/19 10:[address] Patient Name: TUCKER POSEY Admission Status: ER Accout number: [id number] Admission Date: 01-23-2019 : 1960 Admission Diagnosis: Attending: MARIA EELNA RAYA Current LOS: 3 Anticipated DC Date: 01-26-2019 Planned Disposition: Home Primary Insurance: MEDICARE A & B Discharge Planning Comments: CM met with patient at bedside after explaining CM role and obtaining verbal consent. STATES [place] [id number] AND [facility] . PLANS TO DC TO HOME TODAY WITH . IM SIGNED. CM TO FOLLOW AND ASSIST. Shirt Ironer: Romelia Friedman DCPIA - Discharge Planning Initial Assessment Updated by [id number]: Romelia Friedman on 01/26/19 11:00 am * Is the patient Alert and Oriented? Yes * PCP [facility] * [facility] * Preadmission Environment Home with Family * ADLs Independent * Other Equipment WALKER, O2 * Community resources currently utilized Home Health * Please name any agencies selected above. [facility] * Additional services required to return to the preadmission environment? No * Can the patient safely return to the preadmission environment? Yes * Has this patient been hospitalized within the prior 30 days at any hospital? No Coverage Notice Reviewer: [id number] Mohan Friedman Notice Issued Date-Time: 01/26/2019 10:58 Notice Type: IM Discharge Notice Notice Delivered To: Patient Relationship to Patient: Package Worker Name: Delivery Method: HAND - Hand Delivered Brandee Days: Prior Verbal Notification: Recipient Understood Notice: Yes Recipient Signature: Yes Med Rec Note Co-signed by Attending: Coverage Notice Comment: Last DP export: 01/26/19 10:03 a Patient Name: TUCKER POSEY Page [id number] at 0904 All edits/amendments must be made on the electronic document DICTATION DATE: 01/28/19903 TRANSMISSION CALIBRATION ENGINEER: JARRETT 01/28/19903 RPT#: [id number] DC DATE:01/26/19 STATUS: DIS IN [facility] [address] [place] [address] END OF REPORT
== END 2019-01-26 12:44 | disposition home or self-care (01) | DRG 189 ==
LOC: D.ER 11:14 → D.MS 18:09
PROVIDERS: Family Medicine; ADMIT Internal Medicine Nephrology; ATTEND Internal Medicine Nephrology
DX: J96.22 Acute and chronic respiratory failure with hypercapnia (principal); G93.41 Metabolic encephalopathy; N39.0 Urinary tract infection, site not specified; N17.9 Acute kidney failure, unspecified; F17.203 Nicotine dependence unspecified, with withdrawal; J96.21 Acute and chronic respiratory failure with hypoxia; I10 Essential (primary) hypertension; J44.9 Chronic obstructive pulmonary disease, unspecified; K21.9 Gastro-esophageal reflux disease without esophagitis; F31.9 Bipolar disorder, unspecified; E87.5 Hyperkalemia; G40.909 Epilepsy, unspecified, not intractable, without status epilepticus; D64.9 Anemia, unspecified; E83.41 Hypermagnesemia